=== PATIENT | male | born 1965 | race Caucasian/White ===

== ENCOUNTER 2017-03-12 11:44 | Emergency (ER) | payer SELFPAY ==
[~2017-03-12] VITALS: Ht 167.6 cm; Wt 60.0 kg
[~2017-03-12 11:44] MED LIST: FOLBEE PLUS TABL5 MG PO; LIBRIUM25 MG PO; VITAMIN B-1100 MG PO; ZOFRAN ODT4 MG PO
[2017-03-12 11:52] VITALS: BP 141/108
== END 2017-03-12 11:53 ==
LOC: EME 11:44
DX: F10.129 Alcohol abuse with intoxication, unspecified (principal); R03.0 Elevated blood-pressure reading, without diagnosis of hypertension; Z02.89 Encounter for other administrative examinations; F17.200 Nicotine dependence, unspecified, uncomplicated
CPT/HCPCS: 99281; 99283

== ENCOUNTER 2017-06-27 03:35 | Emergency (ER) | payer SELFPAY ==
[~2017-06-27] VITALS: Ht 165.1 cm; Wt 59.0 kg
[2017-06-27 03:40] VITALS: BP 117/79
== END 2017-06-27 03:47 ==
LOC: EME 03:35
DX: F10.129 Alcohol abuse with intoxication, unspecified (principal); F17.200 Nicotine dependence, unspecified, uncomplicated
CPT/HCPCS: 99281; 99284